=== PATIENT | male | born 1965 | race Caucasian/White ===

== ENCOUNTER 2018-12-22 15:53 | Emergency (ER) | payer MEDICAID ==
[~2018-12-22] VITALS: Ht 182.9 cm; Wt 90.7 kg
--- NOTE | 2018-12-22 16:21 | NUR ---
"SENT HERE BY PMD FOR BLOOD SUGAR "HI" IN CLINIC" PT [id number], -SOB, NAD NOTED, VSS ,PENDING MD CRUZ
[2018-12-22] MEDS ORDERED: IV NS 0.9% 1,000 ML BAG IV ONE (16:30)
[2018-12-22 16:51] LABS: BASOPHILS # (AUTO) 0.1 /CMM (0.0-0.2); BASOPHILS % (AUTO) 0.6 % (0.0-2.0); EOSINOPHILS % (AUTO) 0.2 % (0.0-6.0); HEMATOCRIT 47 % (39-51); HEMOGLOBIN 15.7 g/dL (13.5-17.5); LYMPHOCYTES # (AUTO) 2.9 /CMM (0.8-4.8); MEAN CORPUSCULAR HGB CONC 33 g/dl (31.0-36.0); MEAN CORPUSCULAR VOLUME 83 fL (80-96); MONOCYTES # (AUTO) 0.9 /CMM (0.1-1.30); MONOCYTES % (AUTO) 7.7 % (2.0-12.0); NEUTROPHILS # (AUTO) 8.2 /CMM (1.8-8.9); NEUTROPHILS % (AUTO) 67.5 % (43.0-81.0); PLATELET COUNT (AUTO) 301 /CMM (150-450); WHITE BLOOD COUNT (AUTO) 12.1 K/uL (4.3-11.0)
[2018-12-22 17:15] LABS: ALBUMIN 3.6 g/dL (3.4-5.0); BILIRUBIN,DIRECT 0.1 mg/dL (0.0-0.2); BILIRUBIN,TOTAL 0.5 mg/dL (0.2-1.0); CALCIUM, SERUM 9.8 mg/dL (8.5-10.1); CREATININE 1.1 mg/dL (0.6-1.3); POTASSIUM 5.4 mmol/L (3.5-5.1); TOTAL PROTEIN, SERUM 7.9 g/dL (6.4-8.2)
[2018-12-22] MEDS ORDERED: INSULIN REGULAR, HUMAN 100 UNIT/ML 10 ML VIAL SQ ONE (17:30)
[2018-12-22] MEDS ORDERED: INSULIN REGULAR, HUMAN 100 UNIT/ML 10 ML VIAL ONE (17:34)
--- NOTE | 2018-12-22 18:52 | NUR ---
URINE SENT TO LAB
[2018-12-22 18:57] LABS: APPEARANCE,URINE Clear (CLEAR); BILIRUBIN,URINE Negative (NEGATIVE); BLOOD, URINE Negative Ery/uL (NEGATIVE); COLOR,URINE Yellow (YELLOW); KETONES,URINE 80 (NEGATIVE); LEUKOCYTE ESTERASE ,URINE Negative (NEGATIVE); NITRITE, URINE Negative (NEGATIVE); PROTEIN,URINE Negative (NEGATIVE); UGLUCOSE 500 MG/DL mg/dL (NEGATIVE); UROBILINOGEN,URINE 0.2 EU/dL (0.2)
[2018-12-22 19:03] LABS: BACTERIA,URINE Rare /HPF (None Seen); RBC,URINE 0-2 /HPF (0-2); SQUAMOUS EPITHELIAL CELL,UR Few /HPF (None Seen); WBC,URINE 0-2 /HPF (0-3)
--- NOTE | 2018-12-22 19:15 | NUR ---
NATASHA CALLED TO GIVE TRIP NUMBER [id number]. WERE TOLD TO CALL BACK ONCE WE HAVE AT DESTINATION TO ACTIVATE TRANSPORT.
--- NOTE | 2018-12-22 19:31 | NUR ---
RECIEVED ROOM 205 AT [facility]. DR STEWART IS THE ACCEPTING. NUMBER FOR REPORT
--- NOTE | 2018-12-22 20:41 | NUR ---
REPORT GIVEN TO ABRAM MONSALVE AT [facility]
[2018-12-22 21:18] VITALS: BP 155/91
--- NOTE | 2018-12-22 21:22 | NUR ---
PT LEFT VIA [facility] AM[facility]ULANCE TO [facility]. NAD NOTED, LEFT IN STABLE CONDITION, REPORT GIVEN TO AMBULANCE STAFF.
== END 2018-12-22 21:24 | disposition short-term general hospital (02) ==
LOC: ER 15:55
DX: E11.65 Type 2 diabetes mellitus with hyperglycemia (principal); R53.83 Other fatigue; Z98.890 Other specified postprocedural states
CPT/HCPCS: 36415; 71045; 80048; 80076; 81001; 82962 ×2; 85025; 93005; 96360; 96372; 99285; J1815; J7030; 81000-TC